=== PATIENT | female | born 1975 | race Asian ===

== ENCOUNTER → 2020-10-25 11:16 | Outpatient (CLI) | payer OTHER, SELFPAY ==
[2020-10-25 15:55] LABS: Hepatitis B Surface Antigen Non-Reactive (Nonreactive); Hepatitis C Antibody Non-Reactive (Nonreactive)
== END ==
PROVIDERS: PCP Nurse Practitioner Adult Health; Referring Provider Nurse Practitioner Adult Health; Visit Provider Nurse Practitioner Adult Health
DX: Z11.59 Encounter for screening for other viral diseases (principal)
CPT/HCPCS: 36415; 86803; 87340